=== PATIENT | female | born 1955 | race Two or more races ===

== ENCOUNTER 2022-01-11 07:10 | Day surgery (SDC) | payer OTHER ==
[~2022-01-11] VITALS: Ht 175.3 cm; Wt 96.2 kg
[~2022-01-11 07:10] MED LIST: ALTACE10 MG PO; B COMPLEX1 EAC1; BYSTOLIC5 MG PO; CRESTOR10 MG PO; FOLIC A PO; METOTREXATE PO; ST. JOSEPH ASPI81 M3 PO; VITAMIN PO
== END 2022-01-11 15:10 | disposition home or self-care (01) ==
LOC: CIR.AMB 07:10
PROVIDERS: ATTEND Colon & Rectal Surgery
DX: K62.9 Disease of anus and rectum, unspecified (principal); D12.9 Benign neoplasm of anus and anal canal; D12.8 Benign neoplasm of rectum; I10 Essential (primary) hypertension; Z20.822 Contact with and (suspected) exposure to COVID-19